=== PATIENT | female | born 1985 | race Caucasian/White ===

== ENCOUNTER 2018-12-29 13:50 | Emergency (ER) | payer OTHER ==
[2018-12-29] MEDS ORDERED: PROMETHAZINE 25 MG TABLET ONE (14:35)
[2018-12-29] MEDS ORDERED: HYDROCODONE/APAP 5/325 MG TAB ONE (14:35)
--- NOTE | 2018-12-29 14:38 | RAD REPORT ---
EXAM DESCRIPTION: RAD - Ankle Left 3 View - 12/29/2018 2:32 pm CLINICAL HISTORY: Pain;Swelling COMPARISON: <Comparisons> FINDINGS: No fracture or dislocation seen.
--- NOTE | 2018-12-29 14:55 | EDPHYS ---
Physician Documentation [facility] Name: Genesis Sher Age: 33 yrs Sex: Female : 1985 Arrival Date: 12/29/2018 Time: 13:52 Bed 5 Private MD: ED Physician Francis Barrios HPI: 12/29 14:51 This 33 yrs old Female presents to ER via Ambulatory with complaints of Ankle snw Injury. 14:51 The patient presents with pain, swelling, tenderness. The complaints affect the left snw ankle. Onset: The symptoms/episode began/occurred suddenly, just prior to arrival. Context: resulted from the patient falling, The mechanism of injury involved inversion of the affected ankle. The patient can partially bear weight on the affected extremity. Associated signs and symptoms: Pertinent positives: swelling, weakness. Severity of symptoms: At their worst the symptoms were moderate. The patient has not experienced similar symptoms in the past. It is unknown whether or not the patient has recently seen a physician. isolated injury, no LOC. Historical: - Allergies: 13:57 Morphine; la1 - PMHx: 13:57 None; la1 - Immunization history:: Adult Immunizations up to date. - Social history:: Smoking status: Patient/guardian denies using tobacco. - Ebola Screening: : No symptoms or risks identified at this time. ROS: 14:32 Constitutional: Negative for fever, chills, and weight loss, Eyes: Negative for injury, snw pain, redness, and discharge, ENT: Negative for injury, pain, and discharge, Neck: Negative for injury, pain, and swelling, Cardiovascular: Negative for chest pain, palpitations, and edema, Respiratory: Negative for shortness of breath, cough, wheezing, and pleuritic chest pain, Abdomen/GI: Negative for abdominal pain, nausea, vomiting, diarrhea, and constipation, Back: Negative for injury and pain, : Negative for injury, bleeding, discharge, and swelling, Skin: Negative for injury, rash, and discoloration, Neuro: Negative for headache, weakness, numbness, tingling, and seizure, Psych: Negative for depression, anxiety, suicide ideation, homicidal ideation, and hallucinations. 14:32 MS/extremity: Positive for injury or acute deformity, pain, swelling, tenderness, of the left lateral malleolus and lateral side of left heel. Exam: 14:31 Constitutional: This is a well developed, well nourished patient who is awake, alert, snw and in no acute distress. Head/Face: Normocephalic, atraumatic. Eyes: Pupils equal round and reactive to light, extra-ocular motions intact. Lids and lashes normal. Conjunctiva and sclera are non-icteric and not injected. Cornea within normal limits. Periorbital areas with no swelling, redness, or edema. ENT: Nares patent. No nasal discharge, no septal abnormalities noted. Tympanic membranes are normal and external auditory canals are clear. Oropharynx with no redness, swelling, or masses, exudates, or evidence of obstruction, uvula midline. Mucous membranes moist. Neck: Trachea midline, no thyromegaly or masses palpated, and no cervical lymphadenopathy. Supple, full range of motion without nuchal rigidity, or vertebral point tenderness. No Meningismus. Chest/axilla: Normal chest wall appearance and motion. Nontender with no deformity. No lesions are appreciated. Cardiovascular: Regular rate and rhythm with a normal S1 and S2. No gallops, murmurs, or rubs. Normal PMI, no JVD. No pulse deficits. Respiratory: Lungs have equal breath sounds bilaterally, clear to auscultation and percussion. No rales, rhonchi or wheezes noted. No increased work of breathing, no retractions or nasal flaring. Abdomen/GI: Soft, non-tender, with normal bowel sounds. No distension or tympany. No guarding or rebound. No evidence of tenderness throughout. Back: No spinal tenderness. No costovertebral tenderness. Full range of motion. Skin: Warm, dry with normal turgor. Normal color with no rashes, no lesions, and no evidence of cellulitis. Neuro: Awake and alert, GCS 15, oriented to person, place, time, and situation. Cranial nerves II-XII grossly intact. Motor strength 5/5 in all extremities. Sensory grossly intact. Cerebellar exam normal. Normal gait. Psych: Awake, alert, with orientation to person, place and time. Behavior, mood, and affect are within normal limits. 14:31 Musculoskeletal/extremity: Extremities: grossly normal except: noted in the lateral side of left heel and left lateral malleolus: pain, swelling, tenderness, ROM: limited active range of motion due to pain, Circulation is intact in all extremities. Sensation intact. Vital Signs: 13:57 BP 107 / 69; Pulse 105; Resp 16; Temp 97.4; Pulse Ox 100% on R/A; Weight 81.65 kg; la1 Height 5 ft. 9 in. (175.26 cm); 13:57 Body Mass Index 26.58 (81.65 kg, 175.26 cm) la1 MDM: 14:00 Patient medically screened. snw 14:56 Data reviewed: vital signs, nurses notes. Data interpreted: Pulse oximetry: on room air snw is 100 %. Interpretation: normal. Counseling: I had a detailed discussion with the patient and/or guardian regarding: the historical points, exam findings, and any diagnostic results supporting the discharge/admit diagnosis, radiology results, the need for outpatient follow up, to return to the emergency department if symptoms worsen or persist or if there are any questions or concerns that arise at home. Special discussion: Based on the history and exam findings, there is no indication for further emergent testing or inpatient evaluation. I discussed with the patient/guardian the need to see the orthopedic surgeon for further evaluation of the symptoms. I discussed with the patient/guardian the need to see the primary care provider for further evaluation of the symptoms. 12/29 13:59 Order name: Ankle Left 3 View XRAY; Complete Time: 14:53 snw 12/29 14:54 Order name: Walking boot; Complete Time: 15:18 snw Administered Medications: 14:40 Drug: Phenergan 25 mg Route: PO; jl7 15:18 Follow up: Response: No adverse reaction jl7 14:41 Drug: [place] 5 mg-325 mg 1 tabs Route: PO; jl7 15:18 Follow up: Response: No adverse reaction; Pain is decreased jl7 Disposition: 12/30 07:11 Co-signature as Attending Physician, Francis Barrios MD I agree with the assessment and kdr plan of care. Disposition: 12/29/18 14:55 Discharged to Home. Impression: Sprain of ankle, Fall on same level, unspecified. - Condition is Stable. - Discharge Instructions: Ankle Sprain, Fall Prevention in the Home, Cryotherapy, Walking Boot. - Prescriptions for Diclofenac Sodium 75 mg Oral Tablet Sustained Release - take 1 tablet by ORAL route 2 times per day; 30 tablet. - Work release form, Medication Reconciliation Form, Thank You Letter, Antibiotic Education, Prescription Opioid Use form. - Follow up: Private Physician; When: 2 - 3 days; Reason: Recheck today's complaints, Continuance of care, Re-evaluation by your physician. Follow up: Emergency Department; When: As needed; Reason: Worsening of condition. Signatures: Dispatcher [employer] EDVA Francis Barrios MD MD kdr Therrien, Shelly, ZEHRA-C LOOP PULLER-Csnw Dhruv Ceja RN RN la1 Fabian Van RN RN jl7 Corrections: (The following items were deleted from the chart) 12/29 15:19 14:55 12/29/2018 14:55 Discharged to Home. Impression: Sprain of ankle; Fall on same jl7 level, unspecified. Condition is Stable. Forms are Medication Reconciliation Form, Thank You Letter, Antibiotic Education, Prescription Opioid Use. Follow up: Private Physician; When: 2 - 3 days; Reason: Recheck today's complaints, Continuance of care, Re-evaluation by your physician. Follow up: Emergency Department; When: As needed; Reason: Worsening of condition. snw
--- NOTE | 2018-12-29 14:55 | ER ---
Nurse's Notes [facility] Name: Genesis Sher Age: 33 yrs Sex: Female : 1985 Arrival Date: 12/29/2018 Time: 13:52 Bed 5 Private MD: Diagnosis: Sprain of ankle;Fall on same level, unspecified Presentation: 12/29 13:56 Presenting complaint: Patient states: I twisted my left ankle about 30 minutes ago. la1 Transition of care: patient was not received from another setting of care. Onset of symptoms was December 29, 2018. Risk Assessment: Do you want to hurt yourself or someone else? Patient reports no desire to harm self or others. Initial Sepsis Screen: Does the patient meet any 2 criteria? No. Patient's initial sepsis screen is negative. Does the patient have a suspected source of infection? No. Patient's initial sepsis screen is negative. Care prior to arrival: None. 13:56 Method Of Arrival: Ambulatory la1 13:56 Acuity: DAVID 4 la1 Historical: - Allergies: 13:57 Morphine; la1 - PMHx: 13:57 None; la1 - Immunization history:: Adult Immunizations up to date. - Social history:: Smoking status: Patient/guardian denies using tobacco. - Ebola Screening: : No symptoms or risks identified at this time. Screenin:15 Abuse screen: Denies threats or abuse. Denies injuries from another. Nutritional jl7 screening: No deficits noted. Tuberculosis screening: No symptoms or risk factors identified. Fall Risk None identified. Assessment: 14:15 General: Appears in no apparent distress. uncomfortable, Behavior is calm, cooperative, jl7 appropriate for age. Pain: Complains of pain in left ankle Pain currently is 2 out of 10 on a pain scale. at worst was 10 out of 10 on a pain scale. Neuro: Level of Consciousness is awake, alert, obeys commands, Oriented to person, place, time, situation. Cardiovascular: Patient's skin is warm and dry. Respiratory: Airway is patent Respiratory effort is even, unlabored, Respiratory pattern is regular, symmetrical. Derm: Skin is pink, warm \T\ dry. Musculoskeletal: Swelling absent. Vital Signs: 13:57 BP 107 / 69; Pulse 105; Resp 16; Temp 97.4; Pulse Ox 100% on R/A; Weight 81.65 kg; la1 Height 5 ft. 9 in. (175.26 cm); 13:57 Body Mass Index 26.58 (81.65 kg, 175.26 cm) la1 ED Course: 13:52 Patient arrived in ED. mr 13:56 Natasha GarciaLINDA is [facility]. snw 13:56 Francis Barrios MD is Attending Physician. snw 13:57 Triage completed. la1 13:57 Arm band placed on left wrist. la1 14:15 Patient has correct armband on for positive identification. Placed in gown. Bed in low jl7 position. Call light in reach. Side rails up X 1. 14:22 Fabian Van, RN is Primary Nurse. jl7 14:31 Ankle Left 3 View XRAY In Process Unspecified. EDMS 15:18 No provider procedures requiring assistance completed. Patient did not have IV access jl7 during this emergency room visit. Administered Medications: 14:40 Drug: Phenergan 25 mg Route: PO; jl7 15:18 Follow up: Response: No adverse reaction jl7 14:41 Drug: [place] 5 mg-325 mg 1 tabs Route: PO; jl7 15:18 Follow up: Response: No adverse reaction; Pain is decreased jl7 Outcome: 14:55 Discharge ordered by . snw 15:18 Discharged to home ambulatory. jl7 15:18 Condition: stable 15:18 Discharge instructions given to patient, Instructed on discharge instructions, follow up and referral plans. medication usage, Demonstrated understanding of instructions, follow-up care, medications, Prescriptions given X 1. 15:19 Patient left the ED. jl7 Signatures: Dispatcher [employer] EDMS Jose NatashaLINDAP-Mikayla Ofelia PurvisDhruv, RN RN la1 Fabian Van, AARON RN jl7
[2018-12-29 15:24] VITALS: BP 107/69; TEMP 97.4; O2SAT 100
== END 2018-12-29 15:19 | disposition home or self-care (01) ==
LOC: ER 13:50
DX: S93.402A Sprain of unspecified ligament of left ankle, initial encounter (principal); W18.30XA Fall on same level, unspecified, initial encounter; Y93.9 Activity, unspecified; Y92.9 Unspecified place or not applicable; Z88.5 Allergy status to narcotic agent
CPT/HCPCS: 73610; 99283; Q0169